=== PATIENT | male | born 1995 | race Caucasian/White ===

== ENCOUNTER 2018-02-05 01:11 | Inpatient (IN) | payer BC ==
[~2018-02-05] VITALS: Ht 170.2 cm; Wt 90.0 kg
[2018-02-05 01:16] VITALS: BP 184/90; PULSE 125; RESP 20; TEMP 98; O2SAT 95
--- NOTE | 2018-02-05 03:06 | PD ---
HPI Chief Complaint: Laceration/Skin Injury Time Seen by Provider: 03:03 Travel History International Travel<30 days: No Contact w/Intl Traveler<30days: No Traveled to known affect area: No History of Present Illness HPI 22-year-old male presents for evaluation of laceration of the dorsum of the right foot. Reports a prior to arrival he was at a pizza place and he kicked a feats of strength object while wearing flip-flops. He sustained a laceration on the dorsum of the right foot. He has pain, throbbing, associated with a laceration on dorsum of the right foot. He is unable to dorsiflex his right great toe. Denies any numbness or tingling. His last tetanus vaccination is unknown. No other complaints. [facility] Social History Alcohol Use: Yes Tobacco Use: No Allergies-Medications (Allergen,Severity, Reaction): Coded Allergies: No Known Allergies (Unverified , 02/05/18) Reported Meds & Prescriptions Reported Meds & Active Scripts Active No Active Prescriptions or Reported Medications Review of Systems Musculoskeletal: Positive: Pain Skin: Positive Other (Positive for laceration, limited range of motion) Neurologic: No: Paresthesia Physical Exam Narrative GENERAL: Well-developed well-nourished male in no acute distress SKIN: Warm and dry. There is a 1 cm laceration on the dorsum of the right foot overlying the first metatarsal. Mild bleeding with no pulsating blood. CARDIOVASCULAR: Regular rate and rhythm. No murmur appreciated. RESPIRATORY: No accessory muscle use. Clear to auscultation. Breath sounds equal bilaterally. MUSCULOSKELETAL: Skin as noted above. The right great toe is held in passive flexion. He is unable to extend his right great toe actively. Distal sensation is preserved. Capillary refill less than 2 seconds all digits. 2+ dorsalis pedis pulse. NEUROLOGICAL: Awake and alert. No obvious cranial nerve deficits. Motor grossly within normal limits. Normal speech. Data Data Last Documented VS Vital Signs Date Time Temp Pulse Resp B/P (MAP) Pulse Ox O2 Delivery O2 Flow Rate FiO2 02/05/18 01:16 98.0 125 20 184/90 (121) 95 Orders Orders Cefazolin 2 Gm Premix (Ancef 2 Gm Premix (02/05/18 03:15) Lidocaine Pf 1% Inj (Xylocaine-Mpf 1% In (02/05/18 03:15) Tetanus/Diphtheria Tox Adult (Tetanus/Di (02/05/18 03:15) Foot, Complete ([id number]) (02/05/18 ) Wound Care (02/05/18 03:52) Consent (02/05/18 03:56) Complete Blood Count With Diff (02/05/18 03:58) Act Partial Throm Time (Ptt) (02/05/18 03:58) Prothrombin Time / Inr (Pt) (02/05/18 03:58) Basic Metabolic Panel (Bmp) (02/05/18 03:58) Electrocardiogram (02/05/18 ) Consult Podiatry (02/05/18 ) Admit Order (Ed Use Only) (02/05/18 04:08) Admit To Inpatient (02/05/18 ) Vital Signs (Adult) Q4H (02/05/18 04:05) Activity Bed Rest (02/05/18 04:05) Intake + Output DEERK.QSHIFT (02/05/18 04:05) Diet Npo (02/05/18 Breakfast) Sodium Chlor 0.9% 1000 Ml Inj (Ns 1000 M (02/05/18 04:05) Sodium Chloride 0.9% Flush (Ns Flush) (02/05/18 04:15) Sodium Chloride 0.9% Flush (Ns Flush) (02/05/18 09:00) Ondansetron Inj (Zofran Inj) (02/05/18 04:15) Comprehensive Metabolic Panel (02/06/18 06:00) Complete Blood Count With Diff (02/06/18 06:00) Mechanical Contraindication (02/05/18 04:05) Acetaminophen (Tylenol) (02/05/18 04:15) Acetamin-Hydrocod 325-5 Mg (Cabot 5-325 (02/05/18 04:15) Morphine Inj (Morphine Inj) (02/05/18 04:15) Docusate Sodium-Senna (Candie-Colace) (02/05/18 09:00) Magnesium Hydroxide Liq (Milk Of Magnesi (02/05/18 04:15) Sennosides (Senokot) (02/05/18 04:15) Bisacodyl Supp (Dulcolax Supp) (02/05/18 04:15) Lactulose Liq (Lactulose Liq) (02/05/18 04:15) Inpatient Certification (02/05/18 ) Labs Laboratory Tests Test 02/05/18 04:01 [facility] Medical Decision Making Medical Screen Exam Complete: Yes Emergency Medical Condition: Yes Medical Record Reviewed: Yes Differential Diagnosis Extensor tendon laceration, open fracture, cutaneous laceration Narrative Course X-ray of the right foot was obtained revealing no acute abnormalities. The patient was given 2 g of IV Ancef. The examination is consistent with extensor tendon laceration on the dorsal surface of the right foot overlying the first metatarsal. I discussed with the on-call ese teacher Dr. Moore who would like the patient admitted to the hospital team with consultation to herself, likely operative repair sometime this morning. She would like a dressing to be placed in the wound but the wound does not need to be closed at this time. Diagnosis Primary Impression: Laceration of extensor tendon of right foot Admitting Information Admitting Physician Requests: Observation Scripts No Active Prescriptions or Reported Meds Jeremiah Bhandari Feb 05, 2018 03:06
[2018-02-05] MEDS ORDERED: LIDOCAINE HCL 1% PF 30 ML VIAL INFIL ONE (03:15)
[2018-02-05] MEDS ORDERED: ceFAZolin 2 GM PREMIX 50 ML IV ONE (03:15)
[2018-02-05] MEDS ORDERED: TETANUS/DIPHTHERIA TOXOID ADULT 0.5 ML VIAL IM ONE (03:15)
--- NOTE | 2018-02-05 03:33 | RADRPT ---
EXAM DATE/TIME: 02/05/2018 03:13 [place] COMPARISON: No previous studies available for comparison. INDICATIONS : Cut at 1st toe on anterior part of foot from kicking a machine. MEDICAL HISTORY : None. SURGICAL HISTORY : None. ENCOUNTER: Initial ACUITY: 1 day PAIN SCORE: 4/10 LOCATION: Right foot FINDINGS: Three view examination of the right foot demonstrates no soft tissue swelling, dislocation, or fractu re. There is a soft tissue defect involving the dorsum of the foot near the first metatarsal base. No retained foreign body. The tarsal bones appear intact. The interphalangeal and metatarsophalangea l joints are intact. The calcaneus is intact. Bony mineralization is normal. CONCLUSION: Soft tissue defect. No radiopaque foreign body. Davide Perez Jr., MD on February 05, 2018 at 3:31 Board Certified Radiologist. This report was verified electronically.
[2018-02-05] MEDS ORDERED: ACETAMINOPHEN 325 MG TAB PO PRN (04:15)
[2018-02-05] MEDS ORDERED: MORPHINE SULFATE 2 MG/ML INJ IV PUSH PRN (04:15)
[2018-02-05] MEDS ORDERED: SODIUM CHLORIDE 0.9% FLUSH 10 ML FLUSH IV FLUSH PRN (04:15)
[2018-02-05] MEDS ORDERED: SENNOSIDES 8.6 MG TAB PO PRN (04:15)
[2018-02-05] MEDS ORDERED: LACTULOSE SYRUP 20 GM/30 ML CUP PO PRN (04:15)
[2018-02-05] MEDS ORDERED: BISACODYL 10 MG SUPP RECTAL PRN (04:15)
[2018-02-05] MEDS ORDERED: MAGNESIUM HYDROXIDE SUSP 30 ML CUP PO PRN (04:15)
[2018-02-05] MEDS ORDERED: ONDANSETRON HCL 4 MG/2 ML VIAL IVP PRN (04:15)
[2018-02-05 04:16] LABS: AUTOMATED NEUTROPHIL # 5.4 TH/MM3 (1.8-7.7); BASOPHIL # 0.1 TH/MM3 (0-0.2); BASOPHIL % 0.8 % (0.0-2.0); EOSINOPHIL # 0.1 TH/MM3 (0-0.4); EOSINOPHIL % 1.6 % (0.0-4.0); HEMATOCRIT 41.1 % (39.0-51.0); HEMOGLOBIN 14.3 GM/DL (13.0-17.0); LYMPHOCYTE # 2.4 TH/MM3 (1.0-4.8); MEAN CELL VOLUME 86.7 FL (80.0-100.0); MEAN CORPUSCULAR HEMOGLOBIN 30.3 PG (27.0-34.0); MEAN CORPUSCULAR HGB CONC 34.9 % (32.0-36.0); MEAN PLATELET VOLUME 7.7 FL (7.0-11.0); MONO % 5.9 % (0.0-8.0); MONOCYTE # 0.5 TH/MM3 (0-0.9); NEUT % 63.7 % (16.0-70.0); PLATELET COUNT 276 TH/MM3 (150-450); RED BLOOD COUNT 4.74 MIL/MM3 (4.50-5.90); RED CELL DISTRIBUTION WIDTH 12.9 % (11.6-17.2); WHITE BLOOD COUNT 8.5 TH/MM3 (4.0-11.0)
[2018-02-05 04:24] LABS: PROTHROMBIN TIME - PATIENT 10.4 SEC (9.8-11.6)
--- NOTE | 2018-02-05 04:29 | HHI.HP ---
[facility] Service [facility] Primary Care Physician No Primary Care Physician Admission Diagnosis Extensor tendon laceration right foot Diagnoses: (1) Laceration of extensor tendon of right foot Diagnosis: Principal (2) Alcohol intoxication Diagnosis: Principal Travel History International Travel<30 Days: No Contact w/Intl Traveler <30 Da: No Traveled to Known Affected Are: No History of Present Illness This is a 22-year-old male w/ no significant PMH who was brought to the ER after injuring his right foot. Patient was apparently drinking at a bar and kicked a strength object while wearing flip-flops. Sustained laceration to the dorsum of right foot. Reports severe pain, 8/10, constant, worse with movement. On arrival, BP 184/90, HR 125, O2 sat 95% on RA, Afebrile. Labs currently pending. Foot X-ray with soft tissue defect. On exam, patient noted to have laceration through extensor tendon of right foot. Dr. Moore w/ Podiatry consulted by ER physician, plan for surgical intervention this morning. Review of Systems Except as stated in HPI: all other systems reviewed are Neg ROS: 14 point review of systems otherwise negative. Past Family Social History Past Medical History PMH: None Past Surgical History PAST SURGICAL HISTORY: None Allergies: Coded Allergies: No Known Allergies (Unverified , 02/05/18) Family History PAST FAMILY HISTORY: Reviewed. No h/o DM or CAD Social History PAST SOCIAL HISTORY: Occasional alcohol. Denies tobacco or drugs. Physical Exam Vital Signs Vital Signs Date Time Temp Pulse Resp B/P (MAP) Pulse Ox O2 Delivery O2 Flow Rate FiO2 02/05/18 01:16 98.0 125 20 184/90 (121) 95 Physical Exam PE: GENERAL: Young white male in no acute distress, intoxicated. Parents at bedside. HEENT: PERRLA, EOMI. No scleral icterus or conjunctival pallor. No lid lag or facial droop. CARDIOVASCULAR: Regular rate and rhythm. No obvious murmurs to auscultation. No chest tenderness to palpation. RESPIRATORY: No obvious rhonchi or wheezing. Clear to auscultation. Breath sounds equal bilaterally. GASTROINTESTINAL: Abdomen soft, non-tender, nondistended. BS normal. MUSCULOSKELETAL: Extremities without clubbing, cyanosis, or edema. No obvious deformities. Right foot with laceration, bandage in place NEUROLOGICAL: Awake, alert and oriented x4. No focal neurologic deficits. Moving both upper and lower extremities spontaneously. Laboratory Laboratory Tests Test 02/05/18 04:01 Caprini VTE Risk Assessment Caprini VTE Risk Assessment: No/Low Risk (score <= 1) Caprini Risk Assessment Model Point Value = 1 Point Value = 2 Point Value = 3 Point Value = 5 Age 41-60 Minor surgery BMI > 25 kg/m2 Swollen legs Varicose veins or History of unexplained or recurrent spontaneous Oral contraceptives or hormone replacement Sepsis (< 1 month) Serious lung disease, including pneumonia (< 1 month) Abnormal pulmonary function Acute myocardial infarction Congestive heart failure (< 1 month) History of inflammatory bowel disease Medical patient at bed rest Age 61-74 Arthroscopic surgery Major open surgery (> 45 min) Laparoscopic surgery (> 45 min) Malignancy Confined to bed (> 72 hours) Immobilizing plaster cast Central venous access Age >= 75 History of VTE Family history of VTE Factor V Leiden Prothrombin [id number] Lupus anticoagulant Anticardiolipin antibodies Elevated serum homocysteine Heparin-induced thrombocytopenia Other congenital or acquired thrombophilia Stroke (< 1 month) Elective arthroplasty Hip, pelvis, or leg fracture Acute spinal cord injury (< 1 month) Prophylaxis Regimen Total Risk Factor Score Risk Level Prophylaxis Regimen 0-1 Low Early ambulation 2 Moderate Order ONE of the following: *Sequential Compression Device (SCD) *Heparin 5000 units SQ BID 3-4 Higher Order ONE of the following medications: *Heparin 5000 units SQ TID *Enoxaparin/Lovenox 40 mg SQ daily (WT < 150 kg, CrCl > 30 mL/min) *Enoxaparin/Lovenox 30 mg SQ daily (WT < 150 kg, CrCl > 10-29 mL/min) *Enoxaparin/Lovenox 30 mg SQ BID (WT < 150 kg, CrCl > 30 mL/min) AND/OR *Sequential Compression Device (SCD) 5 or more Highest Order ONE of the following medications: *Heparin 5000 units SQ TID (Preferred with Epidurals) *Enoxaparin/Lovenox 40 mg SQ daily (WT < 150 kg, CrCl > 30 mL/min) *Enoxaparin/Lovenox 30 mg SQ daily (WT < 150 kg, CrCl > 10-29 mL/min) *Enoxaparin/Lovenox 30 mg SQ BID (WT < 150 kg, CrCl > 30 mL/min) AND *Sequential Compression Device (SCD) Assessment and Plan Problem List: (1) Laceration of extensor tendon of right foot ICD Code: S96.921A - Laceration of unspecified muscle and tendon at ankle and foot level, right foot, initial encounter Status: Acute (2) Alcohol intoxication ICD Code: F10.929 - Alcohol use, unspecified with intoxication, unspecified Assessment and Plan A/P: 1. Right Foot Lacaration: s/p injury to right extensor tendon after kicking strength object at a bar. X-ray w/ soft tissue defect, images reviewed by me. Dr. Moore consulted, plan is for surgical intervention. NPO, IVF, analgesics /antiemetics as needed. Will review pre-op labs. 2. Alcohol Intoxication: IVF for hydration, follow up labs for possible electrolyte abnormalities. 3. DVT Prophylaxis: Mechanical contraindication secondary to foot injury. 4. Social work for d/c planning as needed. 5. Case discussed w/ ER physician at length, labs/records/imaging reviewed by me. Physician Certification 2 Midnight Certification Type: Admission for Inpatient Services Order for Inpatient Services The services are ordered in accordance with Medicare regulations or non- Medicare payer requirements, as applicable. In the case of services not specified as inpatient-only, they are appropriately provided as inpatient services in accordance with the 2-midnight benchmark. Estimated LOS (days): 2 days is the estimated time the patient will need to remain in the hospital, assuming treatment plan goals are met and no additional complications. Post-Hospital Plan: Not yet determined Ashley Alvarez MD Feb 05, 2018 04:29
[2018-02-05 04:42] LABS: BICARBONATE 21.9 MEQ/L (21.0-32.0); CALCIUM 8.2 MG/DL (8.5-10.1); CREATININE 0.86 MG/DL (0.60-1.30)
[2018-02-05 04:43] VITALS: BP 147/92; PULSE 86; RESP 17; O2SAT 97
[2018-02-05] MEDS ORDERED: BUPIVACAINE HCL PF 0.5% 30 ML VIAL ONE ×2 (04:47→04:48)
--- NOTE | 2018-02-05 07:23 | PD.CONS ---
History of Present Illness Service Podiatry Consult Requested By ED Reason for Consult Right tendon laceration Primary Care Physician No Primary Care Physician Diagnoses: History of Present Illness This is a 22-year-old male w/ no significant PMH who was brought to the ER after injuring his right foot. Patient was apparently drinking at a bar and kicked a strength object while wearing flip-flops. Sustained laceration to the dorsum of right foot with tendon involvement of EHL with severe pain to follow injury. Past Family Social History Allergies: Coded Allergies: No Known Allergies (Unverified , 02/05/18) Past Medical History Denies Past Surgical History Denies Family History Denies Social History Occasional alcohol. Denies tobacco or drugs. Physical Exam Vital Signs Vital Signs Date Time Temp Pulse Resp B/P (MAP) Pulse Ox O2 Delivery O2 Flow Rate FiO2 02/05/18 04:43 86 17 147/92 (110) 97 02/05/18 01:16 98.0 125 20 184/90 (121) 95 Physical Exam Right dorsal foot at level of proximal 1st metatarsal with soft tissue laceration extending down to tendon. Unable to extend hallux. Neurovascularly intact right lower extremity, otherwise. Laboratory Laboratory Tests Test 02/05/18 04:01 White Blood Count 8.5 Red Blood Count 4.74 Hemoglobin 14.3 Hematocrit 41.1 Mean Corpuscular Volume 86.7 Mean Corpuscular Hemoglobin 30.3 Mean Corpuscular Hemoglobin Concent 34.9 Red Cell Distribution Width 12.9 Platelet Count 276 Mean Platelet Volume 7.7 Neutrophils (%) (Auto) 63.7 Lymphocytes (%) (Auto) 28.0 Monocytes (%) (Auto) 5.9 Eosinophils (%) (Auto) 1.6 Basophils (%) (Auto) 0.8 Neutrophils # (Auto) 5.4 Lymphocytes # (Auto) 2.4 Monocytes # (Auto) 0.5 Eosinophils # (Auto) 0.1 Basophils # (Auto) 0.1 CBC Comment DIFF FINAL Differential Comment Prothrombin Time 10.4 Prothromb Time International Ratio 1.0 Activated Partial Thromboplast Time 25.8 Blood Urea Nitrogen 12 Creatinine 0.86 Random Glucose 91 Calcium Level 8.2 Sodium Level 144 Potassium Level 3.5 Chloride Level 111 Carbon Dioxide Level 21.9 Anion Gap 11 Estimat Glomerular Filtration Rate 111 Result Diagram: 02/05/181 02/05/181 Assessment and Plan Assessment and Plan Extensor hallucis longus tendon laceration right foot, open To OR for I&D with possible tendon repair Eric Moore DPM Feb 05, 2018 07:23
[2018-02-05] MEDS ORDERED: DO NOT ADM ANY ANTICOAGULANT DRUGS PRN (07:25)
[2018-02-05] MEDS ORDERED: *PROMETHAZINE 25 MG/ML VIAL PERIprocedural use ONLY ONE (07:28)
--- NOTE | 2018-02-05 07:31 | HHI.PR ---
Immediate Post Op Note Procedure Date: Feb 05, 2018 Pre Op Diagnosis: Right foot skin laceration with extensor tendon laceration Post Op Diagnosis: Same Surgeon: Eric Moore DPM Tile Burner(s): Staff Procedure: I&D right foot with repair of extensor tendon Findings: Consistent with diagnosis. There is dorsal laceration at level of midshaft 1st metatarsal down to level of tendon. Transverse laceration 2cm in length. Tendon not visualized in wound. Incisions made distally 2cm and distal aspect of EHL tendon noted and tagged, and proximally and proximal aspect of EHL tendon had retracted to level of ankle. Neurovascular structures were protected and no tourniquet was utilized. Irrigation with 9L Normal saline, followed by excision of ends of tendon and primary end to end repair with 2-0 fiberwire, followed by culture of tendon sent and primary closure with 3-0 vicryl and 2-0 nylon. Posterior splint applied after xeroform, 4x4, abd, cast padding, benito. 24 hours IV antibiotics recommended. After 24 hours antibiotics IV, ok to discharge on 2 weeks broad spectrum oral antibiotics and pain control Follow up on Monday in [facility] for dressing change before going back to [place] to school Nonweightbearing in splint right foot with crutches. Ordering boot for patient to take with him to eventually be converted into out of the splint He will follow up with a physician in [place] in 2 weeks to assess for suture removal. Discussed likely transition to boot in 2-3 weeks, followed by eventual physical therapy. Additional Information: 2g ancef IV preop Complications: None Specimen(s) removed: 1. culture right foot Estimated blood loss: 20mL Anesthesia: General, Local (10mL 0.5% marcaine plain) Drains: None IVF Tourniquet time (min at mmHg) n/a Patient to: PACU Patient Condition: Good Date/Time of Procedure: SEE SURGICAL CARE RECORD Eric Moore DPM Feb 05, 2018 07:31
[2018-02-05] MEDS: SODIUM CHLORIDE 0.9% FLUSH 10 ML FLUSH IV FLUSH SCH ×2 (09:00→21:00)
[2018-02-05] MEDS: DOCUSATE SODIUM 50 MG/SENNA 8.6 MG TAB PO SCH ×2 (09:00→21:18)
[2018-02-05] MEDS: SODIUM CHLOR 0.9% 1000 ML INJ 1,000 ML IV SCH ×2 (09:11→19:41)
[2018-02-05 09:40] VITALS: PULSE 91; RESP 20; TEMP 98.5; O2SAT 98
[2018-02-05] MEDS: ACETAMINOPHEN/HYDROcodone 325 MG/5 MG TAB PO PRN ×3 (09:43→21:23)
[2018-02-05 11:50] VITALS: BP 148/72; PULSE 88; RESP 16; TEMP 98.3; O2SAT 100
[2018-02-05] MEDS ORDERED: PROPOFOL 200 MG/20 ML AMP IV ONE (12:00)
[2018-02-05] MEDS ORDERED: SUCCINYLCHOLINE CHLORIDE 100 MG/5 ML SYRINGE IV PUSH ONE (12:00)
[2018-02-05] MEDS ORDERED: ONDANSETRON HCL 4 MG/2 ML VIAL IV ONE (12:00)
[2018-02-05] MEDS ORDERED: LACTATED RINGER'S 1000 ML INJ 1,000 ML IV ONE (12:00)
[2018-02-05] MEDS ORDERED: DEXAMETHASONE SOD PHOS 4 MG/ML VIAL IV ONE (12:00)
[2018-02-05] MEDS ORDERED: KETOROLAC TROMETHAMINE 30 MG/ML (IVP) VIAL IV PUSH ONE (12:00)
[2018-02-05] MEDS ORDERED: ceFAZolin INJ 1,000 MG VIAL IV ONE (12:00)
[2018-02-05] MEDS ORDERED: LIDOCAINE HCL 1% PF 5 ML SYRINGE OTHER ONE (12:00)
[2018-02-05] MEDS: ceFAZolin 2 GM PREMIX 50 ML IV SCH ×2 (12:50→19:41)
[2018-02-05 17:00] VITALS: BP 149/77; PULSE 80; RESP 15; TEMP 97.9; O2SAT 99
--- NOTE | 2018-02-05 17:08 | HHI.PR ---
Subjective Remarks seen with Mom at bedside no complains Objective Vitals Vital Signs Date Time Temp Pulse Resp B/P (MAP) Pulse Ox O2 Delivery O2 Flow Rate FiO2 02/05/18 11:50 98.3 88 16 148/72 (97) 100 02/05/18 09:15 98.3 95 16 156/71 (99) 96 Room Air 02/05/18 09:00 92 16 154/70 (98) 95 Room Air 02/05/18 08:45 94 16 146/67 (93) 95 Room Air 02/05/18 08:30 91 16 158/72 (100) 95 Room Air 02/05/18 08:15 91 16 152/73 (99) 94 Room Air 02/05/18 08:00 95 14 138/72 (94) 93 Room Air 02/05/18 07:45 106 14 159/86 (110) 100 Room Air 02/05/18 07:25 97.5 118 15 168/98 (121) 100 Simple Mask 6 02/05/18 04:43 86 17 147/92 (110) 97 02/05/18 01:16 98.0 125 20 184/90 (121) 95 I/O 02/04/18 02/04/18 02/04/18 02/05/18 02/05/18 02/05/18 07:00 15:00 23:00 07:00 15:00 23:00 Intake Total 50 ml 1700 ml Output Total 620 ml Balance 50 ml 1080 ml Intake IV Total 50 ml 1200 ml Other 500 ml Output Urine Total 600 ml Estimated Blood Loss 20 ml Result Diagram: 02/05/18 0401 02/05/18 0401 Imaging Last Impressions Foot X-Ray 02/05/18 0000 Signed Impressions: Service Date/Time: Monday, February 05, 2018 03:13 - CONCLUSION: Soft tissue defect. No radiopaque foreign body. Davide Perez Jr., MD Objective Remarks awake and alert, oriented x 3 lung- clear Leg- with post op dressing in place Procedures 02/05 I&D right foot with repair of extensor tendon A/P Problem List: (1) Laceration of extensor tendon of right foot ICD Code: S96.921A - Laceration of unspecified muscle and tendon at ankle and foot level, right foot, initial encounter Status: Acute (2) Alcohol intoxication ICD Code: F10.929 - Alcohol use, unspecified with intoxication, unspecified Assessment and Plan 22 years old male Right foot skin laceration with extensor tendon laceration S/P I&D right foot with repair of extensor tendon 02/05 -Podiatry ff. on IV Cefazolin per Podiatry - PT consulted for evaluation- - DME- crutches seen with MOm at bedside no chronic medical condition denies alcohol ore recreational drug use Possible DC tomorrow OP ff up with Podiatry CM- consult- Mom is inquiring about possibly getting a scooter- since patient is in college and has to get around the campus building to building for different classes and crutches would be difficult Eugene Rodriguez MD Feb 05, 2018 17:08
--- NOTE | 2018-02-05 18:13 | EKG ---
Date Performed: 02/05/2018 Time Performed: 04:02:55 PTAGE: 22 years EKG: Sinus rhythm POSSIBLE RIGHT VENTRICULAR CONDUCTION DELAY EARLY REPOLARIZATION BORDERLINE ECG NO PREVIOUS TRACING DOCTOR: Shreya Gusman Interpretating Date/Time 02/05/2018 18:11:40
[2018-02-05 20:00] VITALS: BP 142/76; PULSE 80; RESP 16; TEMP 98; O2SAT 100
[2018-02-06 00:05] VITALS: BP 136/61; PULSE 72; RESP 16; TEMP 98.5; O2SAT 99
[2018-02-06] MEDS: ceFAZolin 2 GM PREMIX 50 ML IV SCH (04:07)
[2018-02-06 04:15] VITALS: BP 132/73; PULSE 65; RESP 16; TEMP 98.1; O2SAT 100
[2018-02-06] MEDS: SODIUM CHLOR 0.9% 1000 ML INJ 1,000 ML IV SCH (05:06)
[2018-02-06 08:10] VITALS: BP 142/80; PULSE 60; RESP 16; TEMP 98.1; O2SAT 100
[2018-02-06 08:32] LABS: AUTOMATED NEUTROPHIL # 7.6 TH/MM3 (1.8-7.7); BASOPHIL % 0.4 % (0.0-2.0); EOSINOPHIL # 0.1 TH/MM3 (0-0.4); EOSINOPHIL % 0.9 % (0.0-4.0); HEMATOCRIT 37.8 % (39.0-51.0); LYMPH % 22.5 % (9.0-44.0); LYMPHOCYTE # 2.5 TH/MM3 (1.0-4.8); MEAN CELL VOLUME 88.7 FL (80.0-100.0); MEAN CORPUSCULAR HEMOGLOBIN 30.6 PG (27.0-34.0); MEAN CORPUSCULAR HGB CONC 34.5 % (32.0-36.0); MEAN PLATELET VOLUME 8.1 FL (7.0-11.0); MONO % 7.7 % (0.0-8.0); MONOCYTE # 0.9 TH/MM3 (0-0.9); NEUT % 68.5 % (16.0-70.0); PLATELET COUNT 215 TH/MM3 (150-450); RED BLOOD COUNT 4.26 MIL/MM3 (4.50-5.90); RED CELL DISTRIBUTION WIDTH 12.6 % (11.6-17.2); WHITE BLOOD COUNT 11.1 TH/MM3 (4.0-11.0)
[2018-02-06 08:55] LABS: ALBUMIN 3.2 GM/DL (3.4-5.0); ALT (GPT) 24 U/L (12-78); AST (GOT) 43 U/L (15-37); BICARBONATE 27.7 MEQ/L (21.0-32.0); BLOOD UREA NITROGEN 10 MG/DL (7-18); CALCIUM 8.4 MG/DL (8.5-10.1); CHLORIDE 111 MEQ/L (98-107); CREATININE 0.79 MG/DL (0.60-1.30); GLOMERULAR FILTRATION RATE 123 ML/MIN (>89); GLUCOSE,RANDOM 88 MG/DL (74-106); SODIUM (NA) 143 MEQ/L (136-145)
[2018-02-06 08:57] LABS: ALKALINE PHOSPHATASE 60 U/L (45-117); TOTAL BILIRUBIN ADULT 0.6 MG/DL (0.2-1.0)
[2018-02-06] MEDS: SODIUM CHLORIDE 0.9% FLUSH 10 ML FLUSH IV FLUSH SCH (09:00)
[2018-02-06] MEDS: DOCUSATE SODIUM 50 MG/SENNA 8.6 MG TAB PO SCH (09:22)
[2018-02-06] MEDS: ACETAMINOPHEN/HYDROcodone 325 MG/5 MG TAB PO PRN (10:19)
[2018-02-06] MEDS ORDERED: BACT800T5 PO (11:05)
[2018-02-06] MEDS ORDERED: CEPH-460 PO (11:05)
[2018-02-06] MEDS ORDERED: HYDR-3516 PO (11:05)
--- NOTE | 2018-02-06 11:05 | HHI.DCPOC ---
Discharge Care Plan Diagnosis: (1) Laceration of extensor tendon of right foot Goals to Promote Your Health * To prevent worsening of your condition and complications * To maintain your health at the optimal level Directions to Meet Your Goals Take your medications as prescribed Follow your dietary instruction Follow activity as directed Keep your appointments as scheduled Take your immunizations and boosters as scheduled If your symptoms worsen call your PCP, if no PCP go to Urgent Care Center or Emergency Room Smoking is Dangerous to Your Health. Avoid second hand smoke Call the 24-hour hour crisis hotline for domestic abuse at Sonia Pelayo PA-C Feb 06, 2018 11:05 am
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
[2018-02-06 11:45] VITALS: BP 149/84; PULSE 72; RESP 16; TEMP 98.2; O2SAT 98
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
== END 2018-02-06 12:04 | disposition home or self-care (01) | DRG 502 ==
LOC: NEPD 01:11 → NEDA 04:09 → H6YA 09:27
PROVIDERS: ADMIT Hospitalist; ATTEND Hospitalist
PROC: 0LQV0ZZ Repair Right Foot Tendon, Open Approach (ICD-10-PCS; principal; 2018-02-05 05:13)
DX: S96.121A Laceration of muscle and tendon of long extensor muscle of toe at ankle and foot level, right foot, initial encounter (principal); F10.120 Alcohol abuse with intoxication, uncomplicated; W21.89XA Striking against or struck by other sports equipment, initial encounter
CPT/HCPCS: 73630; 80048; 80053; 85025; 85610; 85730; 87015; 87070; 87102; 87116; 87205; 87206; 90471; 90714; 93005; 96365; E0113; J0330; J0690; J1100; J1885; J2405; J2550; J3010; J7030; J7120; L2114